=== PATIENT | male | born 1955 | race Caucasian/White ===

== ENCOUNTER 2022-03-03 14:24 | Inpatient (IN) | payer MEDICARE, OTHER ==
[~2022-03-03] VITALS: Ht 177.8 cm; Wt 75.7 kg
--- NOTE | 2022-03-03 15:00 | NUR ---
PT IS IN ROOM #2B. DR MENDEZ EVALUATED THE PT.
[2022-03-03] MEDS ORDERED: ONDANSETRON 4 MG/2 ML VIAL ONE (15:12)
[2022-03-03] MEDS ORDERED: ONDANSETRON 4 MG/2 ML VIAL IV ONE ×2 (15:15→16:15)
[2022-03-03] MEDS ORDERED: LORAZEPAM 2 MG/1 ML VIAL IV ONE (15:30)
[2022-03-03] MEDS ORDERED: LORAZEPAM 2 MG/1 ML VIAL ONE (15:40)
[2022-03-03 15:48] LABS: HEMATOCRIT 43.8 % (36.7-47.1); MEAN CORPUSCULAR HEMOGLOBIN 28.8 uug (23.8-33.4); MEAN CORPUSCULAR VOLUME 86.7 fL (73.0-96.2); PLATELET COUNT (AUTO) 332 K/uL (152-348)
[2022-03-03 15:52] LABS: CARBON DIOXIDE 25 mmol/L (21-32); CHLORIDE 99 mmol/L (98-107); CREATININE 1.1 mg/dL (0.6-1.3); GLUCOSE 132 mg/dL (74-106); POTASSIUM 4.5 mmol/L (3.5-5.1); UREA NITROGEN, BLOOD 23 mg/dL (7-18)
[2022-03-03] MEDS ORDERED: IV NORMAL SALINE 250 ML IV ONE (15:53)
[2022-03-03] MEDS ORDERED: SWABABLE VALVE TRANSFER SET EA MC ONE (15:53)
[2022-03-03] MEDS ORDERED: IOHEXOL 300MG/ML 100 ML INFUS..BTL ONE (15:53)
[2022-03-03] MEDS ORDERED: IOHEXOL 350 100 ML INFUS..BTL ONE (15:53)
[2022-03-03 16:11] LABS: ALANINE AMINOTRANSFERASE 32 U/L (16-63); ALKALINE PHOSPHATASE 104 U/L (50-136); ASPARTATE AMINOTRANSFERASE 21 U/L (15-37); BILIRUBIN,DIRECT 0.1 mg/dL (0.0-0.2); BILIRUBIN,TOTAL 0.6 mg/dL (0.2-1.0); TOTAL PROTEIN, SERUM 7.9 g/dL (6.4-8.2)
[2022-03-03] MEDS ORDERED: CEFTRIAXONE 2 G in IV DEXTROSE 5% 100 ML IV ONE (17:00)
[2022-03-03] MEDS ORDERED: MORPHINE SULFATE 2 MG/1 ML DISP.SYRIN IV ONE (17:15)
[2022-03-03] MEDS ORDERED: levETIRAcetam IV 1,000 MG in IV DEXTROSE 5% 100 ML IV ONE (17:15)
[2022-03-03] MEDS ORDERED: METOCLOPRAMIDE HCL 10 MG/2 ML VIAL IV ONE (17:15)
[2022-03-03 17:24] LABS: *BILIRUBIN,URIN NEGATIVE (NEGATIVE); *BLOOD, URINE NEGATIVE (NEGATIVE); *CLARITY,URINE CLEAR (CLEAR); *COLOR,URINE YELLOW (YELLOW); *KETONES,URINE 1+ (NEGATIVE); *UROBILINOGEN,URINE 0.2 E.U./dl (NORMAL); LEUKOCYTE ESTERASE ,URINE NEGATIVE (NEGATIVE); NITRITE, URINE NEGATIVE (NEGATIVE); PH,URINE 8.5 (5.0-8.0); UGLUCOSE NEGATIVE (NEGATIVE)
[2022-03-03] MEDS ORDERED: MORPHINE SULFATE 2 MG/1 ML DISP.SYRIN ONE (17:33)
[2022-03-03] MEDS ORDERED: CEFTRIAXONE 1 G VIAL ONE (17:34)
[2022-03-03] MEDS ORDERED: CEFTRIAXONE /D5W 50ML IVPB **ER PYXIS IV ONE (17:34)
[2022-03-03] MEDS ORDERED: METOCLOPRAMIDE HCL 10 MG/2 ML VIAL ONE (17:35)
[2022-03-03] MEDS ORDERED: ASPIRIN EC 325 MG TABLET.DR PO ONE (17:35)
--- NOTE | 2022-03-03 17:43 | NUR ---
SPOKE WITH DR. ELLISON, NEUROLOGIST, REGARDING THE PATIENT. HE WILL BE CONSULTING AND SUGGESTED KEPPRA AND ASPIRIN
[2022-03-03] MEDS: ASPIRIN EC 325 MG TABLET.DR PO SCH (17:50)
--- NOTE | 2022-03-03 19:29 | NUR ---
assited pt with the urinal, he was able to go. Pt's ex is at the bedside.
--- NOTE | 2022-03-03 19:37 | NUR ---
report given to Paige ALFRED pt to go to room 306.
--- NOTE | 2022-03-03 20:07 | NUR ---
pt transported to room 306 via [facility] with all belongings accompanied by ex-. TIMA Gibson at bedside to receive the pt.
[2022-03-03] MEDS ORDERED: MAGNESIUM HYDROXIDE 30 ML LIQUID UDC PO PRN (20:15)
[2022-03-03] MEDS ORDERED: ACETAMINOPHEN 325 MG TABLET PO PRN (20:15)
[2022-03-03] MEDS ORDERED: REMEDY ESSENTIAL ZINC PASTE 113 GM TP PRN (20:15)
[2022-03-03] MEDS ORDERED: HYDROCODONE/APAP 5-325MG TABLET PO PRN (20:15)
[2022-03-03] MEDS ORDERED: ONDANSETRON 4 MG/2 ML VIAL IV PRN (20:15)
[2022-03-03 20:50] VITALS: BP 122/60
[2022-03-03] MEDS ORDERED: levETIRAcetam 500 MG/5 ML LIQUID UDC NG SCH (21:00)
[2022-03-03] MEDS: ENOXAPARIN SODIUM 40 MG/0.4 ML DISP.SYRIN SQ SCH (21:07)
[2022-03-03 22:24] LABS: BACTERIA,URINE NONE SEEN /HPF (NONE SEEN); RBC,URINE NONE SEEN /HPF (0-3); SQUAMOUS EPITHELIAL CELL,UR NONE SEEN /HPF (NONE SEEN); WBC,URINE 0-3 /HPF (0-3)
[2022-03-04 00:58] VITALS: BP 103/56
[2022-03-04 04:00] VITALS: BP 118/75
--- NOTE | 2022-03-04 05:15 | NUR ---
Pt slept throughout the night. No distress noted. Pt is confused and has difficulties expressing himself. IV site intact. Safety maintained throughout shift. Will endorse to day shift.
[2022-03-04] MEDS: PANTOPRAZOLE SODIUM 40 MG TABLET.DR PO SCH (06:05)
[2022-03-04 06:47] LABS: HEMATOCRIT 39.8 % (36.7-47.1); MEAN CORPUSCULAR HEMOGLOBIN 29.2 uug (23.8-33.4); PLATELET COUNT (AUTO) 297 K/uL (152-348)
[2022-03-04 07:07] LABS: PHOSPHOROUS 3.8 mg/dL (2.5-4.9); POTASSIUM 3.5 mmol/L (3.5-5.1)
[2022-03-04 07:37] LABS: THYROID STIMULATING HORMONE 3.035 mIU/mL (0.358-3.740)
--- NOTE | 2022-03-04 07:45 | NUR ---
Received patient in bed. Complained of leg spasm. Seen by doctor with new order for Valium. Valium and new order for keppra given.
[2022-03-04] MEDS: DIAZEPAM 5 MG TABLET PO PRN (08:53)
[2022-03-04] MEDS: levETIRAcetam 500 MG TABLET PO SCH ×2 (08:53→20:19)
[2022-03-04] MEDS: ASPIRIN EC 325 MG TABLET.DR PO SCH (08:53)
--- NOTE | 2022-03-04 10:45 | NUR ---
Patient in bed asleep. No signs of acute distress. No complaint of leg spasms.
[2022-03-04 11:32] VITALS: BP 110/64
--- NOTE | 2022-03-04 14:35 | NUR ---
NEUROLOGIST CALLED FOR FOLLOW-UP WITH ORDERS SEE NOTES
[2022-03-04 16:00] VITALS: BP 122/64
--- NOTE | 2022-03-04 16:02 | NUR ---
neurologist in and spoke with patient regarding neuro status and plan. see notes. For MRI BRAIN IN AM WO contrast
[2022-03-04] MEDS: ENOXAPARIN SODIUM 40 MG/0.4 ML DISP.SYRIN SQ SCH (20:23)
[2022-03-04 20:42] VITALS: BP 114/49
[2022-03-04] MEDS ORDERED: levETIRAcetam 500 MG/5 ML LIQUID UDC NG SCH (21:00)
[2022-03-05 00:50] VITALS: BP 106/54
[2022-03-05] MEDS ORDERED: IBUPROFEN 400 MG TABLET PO PRN (01:30)
--- NOTE | 2022-03-05 04:32 | NUR ---
Patient sinus fortunato HR of 44 on the monitor.Asymptomatic.No s/s of distress noted.On RA.Patient is anxious about his bilateral lower leg pain .Motrin was given.Michelle Harvey notified with new order received.Will continue to monitor.
[2022-03-05 04:56] VITALS: BP 129/60
[2022-03-05] MEDS: PANTOPRAZOLE SODIUM 40 MG TABLET.DR PO SCH (06:10)
--- NOTE | 2022-03-05 08:00 | NUR ---
AWAKE ALERT AND ORIENTED X3 NO SS OF PAIN OR RESP DISTRESS. SR ON MONITOR. PATIENT FOR MRI AT 1100. PER HOSPITALIST OK TO GO WITH S FOR TRANSPORT TO [facility] FOR MRI
[2022-03-05] MEDS: ASPIRIN EC 325 MG TABLET.DR PO SCH (08:06)
[2022-03-05] MEDS: levETIRAcetam 500 MG TABLET PO SCH (08:06)
--- NOTE | 2022-03-05 10:05 | NUR ---
DVT STUDY DONE AT BEDSIDE SEE HARD COPY ON CHART.
[2022-03-05] MEDS ORDERED: TEST75GE TD (11:03)
[2022-03-05 11:26] VITALS: BP 128/71
[2022-03-05] MEDS: DIAZEPAM 5 MG TABLET PO PRN (11:37)
--- NOTE | 2022-03-05 11:39 | NUR ---
went to [place] via [facility]. report given to ambulance crew
--- NOTE | 2022-03-05 13:00 | NUR ---
BACK FROM [facility], AWAITING MRI RESULTS
--- NOTE | 2022-03-05 15:30 | NUR ---
SEEN BY HOSPITALIST MADE AWARE OF MRI RESULTS AND RELAYED TO NEUROLOGIST BOTH AGREED PATIENT FOR DISCHARGE PER PATIENT REQUEST AND FOLLOW-UP WITH NEUROLOGIST AND PRIMARY DOCTOR.
[2022-03-05] MEDS ORDERED: ASPI-1420 PO (15:41)
[2022-03-05] MEDS ORDERED: ATOR40TA PO (15:41)
[2022-03-05 16:13] VITALS: BP 141/58
--- NOTE | 2022-03-05 17:12 | NUR ---
DISCHARGED HOME STABLE WITH HOME MEDICATIONS AND FOLLOW-UP INSTRUCTION BOTH PRIMARY MD AND NEUROLOGIST. PATIENT ACCOMPANIED BY FRIEND
== END 2022-03-05 17:10 | disposition home or self-care (01) | DRG 66 ==
LOC: ER 14:24 → TELE3 19:43
DX: I63.89 Other cerebral infarction (principal); R29.700 NIHSS score 0; G25.81 Restless legs syndrome; Z20.822 Contact with and (suspected) exposure to COVID-19; Z85.47 Personal history of malignant neoplasm of testis; Z87.820 Personal history of traumatic brain injury; R53.1 Weakness; R51.9 Headache, unspecified; R20.0 Anesthesia of skin; G93.89 Other specified disorders of brain
CPT/HCPCS: 36415; 70450; 70496; 70551; 71045; 83690; 83735; 84100; 84443; 84484; 85025; 85730; 93005; 93307; 95819; 97161; A4663; G0378; J0696; J1650; J1953; J2060; J2270; J2405; J2765; Q9967